=== PATIENT | male | born 1950 | race Caucasian/White ===

== ENCOUNTER → 2021-07-15 14:52 | Outpatient (CLI) | payer MEDICARE, OTHER, SELFPAY ==
[2021-07-19 14:55] LABS: PSA, Free 1.61 ng/mL; PSA, Free % 23.3 % (.); PSA, Total Ultrasensitive 6.9 ng/mL (0.0-4.0)
== END ==
PROVIDERS: PCP Family Medicine; Referring Provider Urology; Visit Provider Urology
DX: R97.20 Elevated prostate specific antigen [PSA] (principal)
CPT/HCPCS: 36415; 84153; 84154

== ENCOUNTER → 2022-01-20 | Outpatient (CLI) | payer MEDICARE, OTHER, SELFPAY ==
[2022-01-20 13:04] LABS: PSA,Total- Diagnostic 6.55 ng/mL (0.0-4.0)
== END | disposition home or self-care (01) ==
LOC: LAB 11:03
PROVIDERS: PCP Family Medicine; Visit Provider Urology
DX: R97.20 Elevated prostate specific antigen [PSA] (principal)
CPT/HCPCS: 36415; 84153; G0103